=== PATIENT | female | born 1945 | race African-American/Black ===

== ENCOUNTER 2024-11-17 17:32 | Emergency (ER) | payer OTHER ==
[~2024-11-17] VITALS: Ht 162.6 cm; Wt 66.0 kg
[2024-11-17 17:36] VITALS: O2SAT 100
[2024-11-17] MEDS: HYDROCODONE/ACETAMINOPHEN 5/325MG TABLET PO ONE ×2 (17:48→20:03)
[2024-11-17 18:59] VITALS: TEMP 36.9; O2SAT 100
[2024-11-17] MEDS ORDERED: HYDR-4001 MT (19:46)
[2024-11-17 20:03] VITALS: BP 162/61; PULSE 66; RESP 14
== END 2024-11-17 20:01 | disposition home or self-care (01) ==
LOC: ER 17:32
DX: S00.83XA Contusion of other part of head, initial encounter (principal); S09.90XA Unspecified injury of head, initial encounter; M25.551 Pain in right hip; R07.9 Chest pain, unspecified; I10 Essential (primary) hypertension; Z86.73 Personal history of transient ischemic attack (TIA), and cerebral infarction without residual deficits; Z88.6 Allergy status to analgesic agent; W18.30XA Fall on same level, unspecified, initial encounter; Y93.89 Activity, other specified; Y92.89 Other specified places as the place of occurrence of the external cause; Y99.8 Other external cause status
CPT/HCPCS: 70486; 71250; 74176; 99284

== ENCOUNTER 2025-01-28 11:40 | Inpatient (IN) | payer OTHER, BC ==
[~2025-01-28] VITALS: Ht 162.6 cm; Wt 70.8 kg
[~2025-01-28 11:40] MED LIST: HYDR-4001 MT
[2025-01-28 12:19] LABS: BASOPHILS % 0.4 % (0.0-2.0); EOSINOPHILS % 1.9 % (0.0-5.0); HEMATOCRIT. 39.8 % (36.0-48.0); HEMOGLOBIN. 13.3 g/dL (12.0-16.0); LYMPHOCYTES % 33.6 % (20.0-50.0); MEAN PLATELET VOLUME 9.3 fl (7.4-10.4); MONOCYTES % 8.9 % (2.0-8.0); NEUTROPHILS % 55.2 % (40.0-76.0); PLATELET 137 x1000/uL (130-400); RED BLOOD CELL COUNT 4.60 mill/uL (4.2-5.4); RED CELL DISTRIBUTION WIDTH 14.9 % (11.6-14.6)
[2025-01-28] MEDS: ALBUTEROL (0.083%) 2.5MG/3ML NEB HHN STA (12:19)
[2025-01-28 12:22] VITALS: PULSE 70; RESP 18; O2SAT 97
[2025-01-28] MEDS: ACETAMINOPHEN 325MG TABLET PO ONE (12:22)
[2025-01-28 12:39] LABS: CREATININE 1.0 mg/dL (0.6-1.0); UREA NITROGEN BLOOD 7 mg/dL (9-23)
[2025-01-28] MEDS ORDERED: HYDRALAZINE 20MG/ML VIAL IV ONE (13:00)
[2025-01-28] MEDS ORDERED: METH4TAB95 PO (13:10)
[2025-01-28] MEDS: HYDRALAZINE HCL 50MG TABLET PO ONE (13:18)
[2025-01-28] MEDS ORDERED: ALBU90AE INH (13:36)
[2025-01-28] MEDS ORDERED: P20 PO (13:41)
[2025-01-28] MEDS ORDERED: GUAIFENESIN 200MG 200 MG TABLET PO PRN (18:45)
[2025-01-28] MEDS ORDERED: IPRATROPIUM/ALBUTEROL 0.5-3(2.5)MG/3ML NEB HHN PRN ×2 (18:45→19:30)
[2025-01-28] MEDS: HYDRALAZINE 20MG/ML VIAL IV ONE (18:45)
[2025-01-28] MEDS ORDERED: GUAIFENESIN-DM 200MG-20MG/10ML UDC PO PRN (19:00)
[2025-01-28] MEDS ORDERED: ACETAMINOPHEN 325MG TABLET PO PRN ×2 (19:30)
[2025-01-28] MEDS ORDERED: ONDANSETRON HCL 4MG/2ML INJ IV PRN (19:30)
[2025-01-28] MEDS ORDERED: DOCUSATE SODIUM 100MG CAPSULE PO PRN (19:30)
[2025-01-28] MEDS ORDERED: DIPHENHYDRAMINE 50MG/ML VIAL IV PRN (19:30)
[2025-01-28] MEDS: AZITHROMYCIN 500 MG TABLET PO SCH (19:45)
[2025-01-28 19:57] VITALS: BP 159/65; PULSE 74; RESP 16; TEMP 37
[2025-01-28 20:01] VITALS: BP 159/60; PULSE 85; RESP 21; TEMP 36.5; O2SAT 100
[2025-01-28] MEDS ORDERED: DYR5 (21:19)
[2025-01-28] MEDS ORDERED: PREG25CA19 PO (21:19)
[2025-01-28] MEDS ORDERED: HYDR25TA PO (21:19)
[2025-01-28] MEDS ORDERED: LOSA50TA41 PO (21:19)
[2025-01-28] MEDS ORDERED: ATOR-2 PO (21:19)
[2025-01-28] MEDS ORDERED: AMLODIPINE 5MG TABLET PO SCH (21:30)
[2025-01-28] MEDS: MELATONIN 3MG TABLET PO SCH (21:30)
[2025-01-28] MEDS ORDERED: HYDRALAZINE 20MG/ML VIAL IV PRN (21:30)
[2025-01-28] MEDS ORDERED: LOSARTAN 50 MG TABLET PO SCH (21:30)
[2025-01-28] MEDS ORDERED: LOSARTAN 100 MG TABLET PO SCH (21:33)
[2025-01-28] MEDS: PREGABALIN 25MG CAPSULE PO SCH (22:31)
[2025-01-29 00:08] VITALS: BP 141/52; PULSE 63; RESP 20; TEMP 36.7; O2SAT 96
[2025-01-29 03:36] LABS: CLARITY URINE CLEAR (CLEAR); COLOR URINE YELLOW (YELLOW); GLUCOSE URINE NEGATIVE (NEGATIVE); KETONES URINE NEGATIVE (NEGATIVE); LEUKOCYTE ESTERASE URINE NEGATIVE (NEGATIVE); NITRITE URINE NEGATIVE (NEGATIVE); OCCULT BLOOD URINE NEGATIVE (NEGATIVE); PH URINE 7.5 (4.5-8.0); PROTEIN URINE NEGATIVE (NEGATIVE); SPECIFIC GRAVITY URINE 1.011 (1.005-1.030); UROBILINOGEN URINE 2.0 E.U./dL (0.2-1.0)
[2025-01-29 03:43] LABS: *AMPHETAMINES SCREEN URINE NEGATIVE (NEGATIVE); *BARBITURATES SCREEN URINE NEGATIVE (NEGATIVE); *BENZODIAZEPINES SCREEN URINE NEGATIVE (NEGATIVE); *COCAINE SCREEN URINE NEGATIVE (NEGATIVE); CANNABINOID URINE SCREEN NEGATIVE (NEGATIVE); ECSTASY MDMA SCREEN URINE NEGATIVE (NEGATIVE); METHADONE URINE SCREEN NEGATIVE (NEGATIVE); OPIATES URINE SCREEN NEGATIVE (NEGATIVE); PHENCYCLIDINE URINE SCREEN NEGATIVE (NEGATIVE)
[2025-01-29 04:00] VITALS: BP 138/62; PULSE 63; RESP 16; TEMP 36.8; O2SAT 99
[2025-01-29 04:53] LABS: SQUAMOUS EPITHELIAL CELL URINE FEW /lpf (RARE/1+)
[2025-01-29 04:54] LABS: WBC URINE 0-2 /hpf (0-2)
[2025-01-29 04:55] LABS: BACTERIA URINE TRACE; RBC URINE NONE SEEN /hpf (0-2)
[2025-01-29 08:00] VITALS: BP 148/65; PULSE 71; RESP 20; TEMP 36.4; O2SAT 97
[2025-01-29 08:10] LABS: BASOPHILS % 0.3 % (0.0-2.0); EOSINOPHILS % 2.1 % (0.0-5.0); HEMATOCRIT. 38.8 % (36.0-48.0); HEMOGLOBIN. 13.0 g/dL (12.0-16.0); LYMPHOCYTES % 41.0 % (20.0-50.0); MEAN PLATELET VOLUME 10.0 fl (7.4-10.4); MONOCYTES % 7.5 % (2.0-8.0); NEUTROPHILS % 49.1 % (40.0-76.0); PLATELET 136 x1000/uL (130-400); RED BLOOD CELL COUNT 4.51 mill/uL (4.2-5.4); RED CELL DISTRIBUTION WIDTH 15.2 % (11.6-14.6)
[2025-01-29 08:27] LABS: CREATININE 0.9 mg/dL (0.6-1.0)
[2025-01-29 08:28] LABS: UREA NITROGEN BLOOD 9 mg/dL (9-23)
[2025-01-29 08:29] LABS: T4 FREE 0.95 ng/dL (0.89-1.76)
[2025-01-29] MEDS ORDERED: HYDROCHLOROTHIAZIDE 25MG TABLET PO SCH (09:00)
[2025-01-29] MEDS ORDERED: TRIAMTERENE 50MG CAPSULE PO SCH (09:00)
[2025-01-29] MEDS ORDERED: LOSARTAN 50 MG TABLET PO SCH (09:00)
[2025-01-29] MEDS ORDERED: LOSARTAN 100 MG TABLET PO SCH (09:00)
[2025-01-29] MEDS: ASPIRIN 81MG TABLET PO SCH (09:38)
[2025-01-29] MEDS: TRIAMTERENE/HCTZ 37.5/25MG TABLET PO SCH (09:39)
[2025-01-29] MEDS: GUAIFENESIN/DM 600MG/30MG ER TAB 12HR PO PRN (09:39)
[2025-01-29 12:00] VITALS: BP 132/50; PULSE 70; RESP 20; TEMP 36.6; O2SAT 95
[2025-01-29] MEDS: LOPERAMIDE HCL 2MG CAPSULE PO PRN (13:39)
[2025-01-29 13:50] LABS: INFLUENZA TYPE A Presumptive Negative (Pres. Neg.); INFLUENZA TYPE B Presumptive Negative (Pres. Neg.)
[2025-01-29 13:56] LABS: RESPIRATORY SYNCYTIAL VIRUS Not Detected (Not Detectd)
[2025-01-29 16:00] VITALS: BP 147/57; PULSE 67; RESP 18; TEMP 36.3; O2SAT 95
[2025-01-29] MEDS: LOSARTAN 100 MG TABLET PO SCH (17:06)
[2025-01-29 20:00] VITALS: BP 150/57; PULSE 64; RESP 18; TEMP 36.4; O2SAT 98
[2025-01-29] MEDS: GUAIFENESIN 200MG/10ML SUGAR FREE UDC PO PRN (21:29)
[2025-01-29] MEDS: ATORVASTATIN CALCIUM 40MG TABLET PO SCH (21:30)
[2025-01-29] MEDS: LOSARTAN 50 MG TABLET PO NR (22:43)
[2025-01-29] MEDS: ZOLPIDEM TARTRATE 5MG TABLET PO PRN (23:13)
[2025-01-30] VITALS: BP 155/62; PULSE 90; RESP 23; TEMP 36.6; O2SAT 96
[2025-01-30 04:00] VITALS: BP 129/55; PULSE 57; RESP 18; TEMP 36.8; O2SAT 97
[2025-01-30 06:43] LABS: BASOPHILS % 0.3 % (0.0-2.0); EOSINOPHILS % 1.9 % (0.0-5.0); HEMATOCRIT. 40.8 % (36.0-48.0); HEMOGLOBIN. 13.3 g/dL (12.0-16.0); LYMPHOCYTES % 36.6 % (20.0-50.0); MEAN PLATELET VOLUME 9.9 fl (7.4-10.4); MONOCYTES % 8.2 % (2.0-8.0); NEUTROPHILS % 53.0 % (40.0-76.0); PLATELET 139 x1000/uL (130-400); RED BLOOD CELL COUNT 4.70 mill/uL (4.2-5.4); RED CELL DISTRIBUTION WIDTH 14.8 % (11.6-14.6)
[2025-01-30 07:07] LABS: CREATININE 1.0 mg/dL (0.6-1.0); TROPONIN I HIGH SENSITIVITY < 4 ng/L (3.0-34); UREA NITROGEN BLOOD 12 mg/dL (9-23)
[2025-01-30 07:09] LABS: PHOSPHORUS 3.2 mg/dL (2.5-4.9)
[2025-01-30 08:00] VITALS: BP 142/65; PULSE 63; RESP 16; TEMP 36.4; O2SAT 99
[2025-01-30] MEDS: LOSARTAN 50 MG TABLET PO SCH (09:32)
[2025-01-30] MEDS: MAGNESIUM 2 G PREMIX 50 ML IV SCH (09:33)
[2025-01-30 12:00] VITALS: BP 139/59; PULSE 68; RESP 14; TEMP 36.5; O2SAT 98
[2025-01-30] MEDS ORDERED: IMOD PO ×2 (13:41→13:43)
[2025-01-30] MEDS ORDERED: GUAI-741 PO ×2 (13:41→13:43)
[2025-01-30] MEDS ORDERED: MELA3TAB40 PO (13:41)
[2025-01-30] MEDS ORDERED: LOSA50TA41 PO (13:41)
[2025-01-30] MEDS ORDERED: ASPI-1160 PO (13:41)
[2025-01-30] MEDS ORDERED: HYDR25TA PO (14:10)
[2025-01-30] MEDS ORDERED: TRIA50CA2 PO (14:10)
[2025-01-30 16:00] VITALS: BP 158/80; PULSE 71; RESP 15; TEMP 36.4; O2SAT 98
[2025-01-30] MEDS ORDERED: BENZONATATE 100MG CAPSULE PO PRN (16:00)
[2025-01-30 16:21] VITALS: BP 139/59; PULSE 68; TEMP 97.7; O2SAT 98
[2025-01-30] MEDS: PHENYLEPHRINE HCL 0.5% 15ML NASAL SPRAY BOTHNSTRLS SCH (16:53)
[2025-01-30] MEDS ORDERED: MELATONIN 3MG TABLET PO SCH (21:00)
== END 2025-01-30 18:42 | disposition home or self-care (01) | DRG 189 ==
LOC: ER 11:40 → 3WST 18:52 → EDBD 18:52
PROVIDERS: ADMIT Internal Medicine; ATTEND Internal Medicine
DX: J96.00 Acute respiratory failure, unspecified whether with hypoxia or hypercapnia (principal); J40 Bronchitis, not specified as acute or chronic; E78.5 Hyperlipidemia, unspecified; I10 Essential (primary) hypertension; E04.1 Nontoxic single thyroid nodule; Z86.73 Personal history of transient ischemic attack (TIA), and cerebral infarction without residual deficits; Z88.0 Allergy status to penicillin; Z88.1 Allergy status to other antibiotic agents; Z79.899 Other long term (current) drug therapy; Z88.8 Allergy status to other drugs, medicaments and biological substances
CPT/HCPCS: 36415; 71045; 80048; 80305; 81003; 83735; 83880; 84100; 84145; 84439; 84443; 84484; 85025; 87070; 87420; 87426; 87804; 93005; 93306; 93970; 94070; 94640; 99285; A4606; J0360; J3475